=== PATIENT | male | born 1985 | race American Indian/Alaskan Native ===

== ENCOUNTER 2018-02-16 11:08 | Inpatient (IN) | payer OTHER ==
[2018-02-16 12:20] LABS: Basophils % (Auto) 0.4 % (0.0-1.8); Eosinophils # (Auto) 0.1 K/mm3 (0.0-0.4); Eosinophils % (Auto) 1.3 % (0.0-4.3); Hematocrit 39.3 % (35.5-45.6); Hemoglobin 13.5 gm/dl (11.8-15.2); Lymphocytes # (Auto) 1.2 K/mm3 (1.2-5.4); Lymphocytes % (Auto) 31.1 % (13.4-35.0); Mean Corpuscular HGB Conc 34 % (32-34); Mean Corpuscular Hemoglobin 29 pg (28-32); Mean Corpuscular Volume 85 fl (84-94); Monocytes # (Auto) 0.4 K/mm3 (0.0-0.8); Platelet Count 177 K/mm3 (140-440); Red Blood Count 4.64 M/mm3 (3.65-5.03); Red Cell Distribution Width 15.3 % (13.2-15.2)
[2018-02-16 12:42] LABS: Alanine Aminotransferase 626 units/L (7-56); BUN/Creatinine Ratio 26; Blood Urea Nitrogen 13 mg/dL (9-20); Calcium 9.7 mg/dL (8.4-10.2); Hemolysis Index 4; Lipase 18 units/L (13-60)
[2018-02-16 14:25] LABS: Bilirubin,Urine MOD (Negative); Blood,Urine NEG (Negative); Color,Urine Amber (Yellow); Mucus,Urine 3+ /HPF
[2018-02-16 14:27] LABS: Ictotest,Urine Positive (Negative)
[2018-02-16 15:20] LABS: INR 0.9 (0.87-1.13)
[2018-02-16 15:21] LABS: Partial Thromboplastin Time 27.3 Sec. (24.2-36.6)
[2018-02-16 15:34] LABS: Hepatitis A Antibody IgM Non-Reactive (NonReactive); Hepatitis B Core IgM Non-Reactive (NonReactive); Hepatitis B Surface Antigen Non-Reactive (Negative); Hepatitis C Virus Antibody Non-Reactive (NonReactive)
--- NOTE | 2018-02-16 16:22 | Emergency Department Report ---
ED Abdominal Pain HPI - General Chief Complaint: Abdominal Pain Stated Complaint: URINE DARK,ROBERTS STOOL Time Seen by Provider: 02/16/18 14:40 Source: patient Mode of arrival: Ambulatory Limitations: No Limitations - History of Present Illness Initial Comments: is a 32-year-old Citizen Of [place] male who is presenting with several months of upper abdominal pain. Patient states that in September he began having epigastric discomfort. Patient states he went and saw Dr. Beltran he had "inflammation in his liver". Patient states he was told nothing else no additional studies were done except for blood work. Patient states he's continued to have some discomfort that he rates around 3 out of 10 in severity. Patient denied any nausea vomiting fevers chills. Patient states that last week his young daughter as to why his eyes were yellow. Patient states that his eyes have progressively become more yellowed and he now has pale colored stool and very dark-colored urine. Severity scale (0 -10): 3 Quality: aching Consistency: constant - Related Data Allergies Allergy/AdvReac Type Severity Reaction Status Date / Time No Known Allergies Allergy Unverified 02/16/18 11:45 ED Review of Systems ROS: Stated complaint: URINE DARK,ROBERST STOOL Other details as noted in HPI Comment: All other systems reviewed and negative ED Past Medical Hx - Past Medical History Previous Medical History?: Yes Hx Seizures: Yes - Surgical History Past Surgical History?: Yes Additional Surgical History: knee surgery - Social History Smoking Status: Never Smoker Substance Use Type: Alcohol, Marijuana ED Physical Exam - General Limitations: No Limitations General appearance: alert, in no apparent distress - Head Head exam: Present: atraumatic, normocephalic - Eye Eye exam: Present: scleral icterus - ENT ENT exam: Present: mucous membranes moist - Neck Neck exam: Present: normal inspection - Respiratory Respiratory exam: Present: normal lung sounds bilaterally. Absent: respiratory distress, wheezes, rales, rhonchi - Cardiovascular Cardiovascular Exam: Present: regular rate, normal rhythm. Absent: systolic murmur, diastolic murmur, rubs, gallop - GI/Abdominal GI/Abdominal exam: Present: soft, tenderness, normal bowel sounds. Absent: distended, guarding, rebound - Rectal Rectal exam: Present: deferred - Extremities Exam Extremities exam: Present: normal inspection - Back Exam Back exam: Present: normal inspection - Neurological Exam Neurological exam: Present: alert, oriented X3 - Psychiatric Psychiatric exam: Present: normal affect, normal mood - Skin Skin exam: Present: warm, dry, intact, normal color. Absent: rash ED Course Vital Signs 02/16/18 02/16/18 11:30 15:55 Temperature 98.5 F 98.7 F Pulse Rate 56 L 66 Respiratory 16 15 Rate Blood Pressure 108/68 110/81 O2 Sat by Pulse 100 100 Oximetry ED Medical Decision Making - Lab Data Result diagrams: 02/16/18 11:50 02/16/18 11:50 Lab Results 02/16/18 02/16/18 02/16/18 Range/Units 11:50 11:50 13:30 WBC 4.0 L (4.5-11.0) K/mm3 RBC 4.64 (3.65-5.03) M/mm3 Hgb 13.5 (11.8-15.2) gm/dl Hct 39.3 (35.5-45.6) % MCV 85 (84-94) fl MCH 29 (28-32) pg MCHC 34 (32-34) % RDW 15.3 H (13.2-15.2) % Plt Count 177 (140-440) K/mm3 Lymph % (Auto) 31.1 (13.4-35.0) % [place] % (Auto) 11.0 H (0.0-7.3) % Eos % (Auto) 1.3 (0.0-4.3) % Baso % (Auto) 0.4 (0.0-1.8) % Lymph # 1.2 (1.2-5.4) K/mm3 [place] # 0.4 (0.0-0.8) K/mm3 Eos # 0.1 (0.0-0.4) K/mm3 Baso # 0.0 (0.0-0.1) K/mm3 Seg Neutrophils % 56.2 (40.0-70.0) % Seg Neutrophils # 2.2 (1.8-7.7) K/mm3 PT (12.2-14.9) Sec. INR (0.87-1.13) APTT (24.2-36.6) Sec. Sodium 133 L (137-145) mmol/L Potassium 3.9 (3.6-5.0) mmol/L Chloride 92.1 L (98-107) mmol/L Carbon Dioxide 26 (22-30) mmol/L Anion Gap 19 mmol/L BUN 13 (9-20) mg/dL Creatinine 0.5 L (0.8-1.5) mg/dL Estimated GFR > 60 ml/min BUN/Creatinine Ratio 26 % Glucose 363 H (75-100) mg/dL Calcium 9.7 (8.4-10.2) mg/dL Total Bilirubin 11.90 H (0.1-1.2) mg/dL AST 392 H (5-40) units/L ALT 626 H (7-56) units/L Alkaline Phosphatase 351 H (35-129) units/L Total Protein 7.6 (6.3-8.2) g/dL Albumin 4.0 (3.9-5) g/dL Albumin/Globulin Ratio 1.1 % Lipase 18 (13-60) units/L Urine Color [place] (Yellow) Urine Turbidity Clear (Clear) Urine pH 6.0 (5.0-7.0) Ur Specific [place] 1.038 H (1.003-1.030) Urine Protein 30 mg/dl (Negative) mg/dL Urine Glucose (UA) >=500 (Negative) mg/dL Urine Ketones 20 (Negative) mg/dL Urine Blood Neg (Negative) Urine Nitrite Neg (Negative) Urine Bilirubin Mod (Negative) Urine Ictotest Positive (Negative) Urine Urobilinogen 4.0 (<2.0) mg/dL Ur Leukocyte Esterase Neg (Negative) Urine WBC (Auto) 3.0 (0.0-6.0) /HPF Urine RBC (Auto) 4.0 (0.0-6.0) /HPF Urine Mucus 3+ /HPF Hepatitis A IgM Ab (NonReactive) Hep Bs Antigen (Negative) Hep B Core IgM Ab (NonReactive) Hepatitis C Antibody (NonReactive) 02/16/18 02/16/18 Range/Units 14:58 14:58 WBC (4.5-11.0) K/mm3 RBC (3.65-5.03) M/mm3 Hgb (11.8-15.2) gm/dl Hct (35.5-45.6) % MCV (84-94) fl MCH (28-32) pg MCHC (32-34) % RDW (13.2-15.2) % Plt Count (140-440) K/mm3 Lymph % (Auto) (13.4-35.0) % [place] % (Auto) (0.0-7.3) % Eos % (Auto) (0.0-4.3) % Baso % (Auto) (0.0-1.8) % Lymph # (1.2-5.4) K/mm3 [place] # (0.0-0.8) K/mm3 Eos # (0.0-0.4) K/mm3 Baso # (0.0-0.1) K/mm3 Seg Neutrophils % (40.0-70.0) % Seg Neutrophils # (1.8-7.7) K/mm3 PT 12.6 (12.2-14.9) Sec. INR 0.90 (0.87-1.13) APTT 27.3 (24.2-36.6) Sec. Sodium (137-145) mmol/L Potassium (3.6-5.0) mmol/L Chloride (98-107) mmol/L Carbon Dioxide (22-30) mmol/L Anion Gap mmol/L BUN (9-20) mg/dL Creatinine (0.8-1.5) mg/dL Estimated GFR ml/min BUN/Creatinine Ratio % Glucose (75-100) mg/dL Calcium (8.4-10.2) mg/dL Total Bilirubin (0.1-1.2) mg/dL AST (5-40) units/L ALT (7-56) units/L Alkaline Phosphatase (35-129) units/L Total Protein (6.3-8.2) g/dL Albumin (3.9-5) g/dL Albumin/Globulin Ratio % Lipase (13-60) units/L Urine Color (Yellow) Urine Turbidity (Clear) Urine pH (5.0-7.0) Ur Specific [place] (1.003-1.030) Urine Protein (Negative) mg/dL Urine Glucose (UA) (Negative) mg/dL Urine Ketones (Negative) mg/dL Urine Blood (Negative) Urine Nitrite (Negative) Urine Bilirubin (Negative) Urine Ictotest (Negative) Urine Urobilinogen (<2.0) mg/dL Ur Leukocyte Esterase (Negative) Urine WBC (Auto) (0.0-6.0) /HPF Urine RBC (Auto) (0.0-6.0) /HPF Urine Mucus /HPF Hepatitis A IgM Ab Non-reactive (NonReactive) Hep Bs Antigen Non-reactive (Negative) Hep B Core IgM Ab Non-reactive (NonReactive) Hepatitis C Antibody Non-reactive (NonReactive) - Medical Decision Making Review of the patient's S patient most likely has an obstructive jaundice. CTs been ordered and patient will be admitted to the hospital for further evaluation by Dr. Lombardi with the hospitalist group. Critical care attestation.: If time is entered above; I have spent that time in minutes in the direct care of this critically ill patient, excluding procedure time. ED Disposition Clinical Impression: Obstructive jaundice, Hyperbilirubinemia Disposition: OP ADMIT IP TO THIS HOSP Is pt being admited?: Yes Does the pt Need Aspirin: No Condition: Serious Referrals: PRIMARY CARE, [Primary Care Provider] - 3-5 Days
[2018-02-16] MEDS ORDERED: PROVENTIL IH PRN (18:16)
[2018-02-16] MEDS ORDERED: ZOFRAN IV PRN (18:16)
[2018-02-16] MEDS ORDERED: SODIUM CHLORIDE FLUSH SYRINGE 10 ML IV PRN (18:16)
--- NOTE | 2018-02-16 18:19 | History and Physical Report ---
History of Present Illness Chief complaint: My stomach hurts History of present illness: 32 YO Male with Seizure disorder presents to ED for evaluation. Pt states that he has experienced upper abdominal pain for the last 3 months, with persistent symptoms over the same time frame. Pt states that pain is 3-5/10, intermittent, localized to the upper right abdomen. Pt acknowledges 35lbs weight loss over the past 3 months. Pt also states that last week his daughter " why your eyes are so yellow". Patient states that his eyes have progressively become more yellowed over the past 2-3 weeks, and he now has pale colored stool and very dark-colored urine. Pt denies fever, chills, CP, Palpitations, night sweats, skin rash or recent ill contacts, ingestion of food or water from new or different sources. Pt seen and evaluated in ED and found to have obstructive jaundice. Pt admitted to telemetry. GI service consulted in ED. Past History Past Medical History: seizures Past Surgical History: Other (knee surgery) Social history: single, lives with family. denies: smoking, alcohol abuse, prescription drug abuse Family history: no significant family history (reviewed) Medications and Allergies Allergies Allergy/AdvReac Type Severity Reaction Status Date / Time No Known Allergies Allergy Unverified 02/16/18 11:45 Home Medications Medication Instructions Recorded Confirmed Last Taken Type No Known Home Medications [No 02/16/18 02/16/18 Unknown History Reported Home Medications] Active Meds: Active Medications Albuterol (Proventil) 2.5 mg IH Q4HRT PRN PRN Reason: Shortness Of Breath Ondansetron HCl (Zofran) 4 mg IV Q8H PRN PRN Reason: Nausea And Vomiting Sodium Chloride (Sodium Chloride Flush Syringe 10 Ml) 10 ml IV BID XIOMARA Sodium Chloride (Sodium Chloride Flush Syringe 10 Ml) 10 ml IV PRN PRN PRN Reason: LINE FLUSH Review of Systems Constitutional: weight loss, no weight gain, no fever, no chills Ears, nose, mouth and throat: no ear pain, no ear discharge, no tinnitis, no decreased hearing, no nose pain, no nasal congestion, no nasal discharge, no sinus pressure Cardiovascular: no chest pain, no orthopnea, no palpitations, no rapid/ irregular heart beat, no edema, no syncope, no lightheadedness, no shortness of breath Respiratory: no cough, no cough with sputum, no excessive sputum, no hemoptysis Gastrointestinal: abdominal pain, no nausea, no vomiting, no change in bowel habits, no hematemesis, no coffee ground emesis, no melena, no hematochezia Genitourinary Male: no dysuria, no hematuria, no flank pain, no discharge Rectal: no pain, no incontinence, no bleeding Musculoskeletal: no neck stiffness, no neck pain, no shooting arm pain, no arm numbness/tingling, no low back pain, no morning stiffness, no muscle weakness, no muscle cramps, no myalgias Integumentary: jaundice, no rash, no pruritis, no redness, no sores, no wounds, no boils, no blisters, no growths, no bullae, no lesions Neurological: no paralysis, no weakness, no parathesias, no numbness, no tingling, no seizures, no syncope, no tremors Psychiatric: no anxiety, no memory loss, no change in sleep habits, no sleep disturbances, no insomnia, no hypersomnia, no change in appetite, no change in libido, no suicidal ideation Endocrine: no cold intolerance, no heat intolerance, no polyphagia, no excessive thirst, no polyuria, no flushing Hematologic/Lymphatic: no easy bruising, no easy bleeding, no lymphadenopathy Allergic/Immunologic: no urticaria, no allergic rhinitis, no wheezing, no persistent infections, no anaphylaxis, no angioedema Exam - Constitutional Vitals: Temp Pulse Resp BP Pulse Ox 98.7 F 66 15 110/81 100 02/16/18 15:55 02/16/18 15:55 02/16/18 15:55 02/16/18 15:55 02/16/18 15:55 General appearance: Present: mild distress - EENT Eyes: Present: PERRL, scleral icterus ENT: hearing intact, clear oral mucosa - Neck Neck: Present: supple, normal ROM - Respiratory Respiratory effort: normal Respiratory: bilateral: CTA - Cardiovascular Heart Sounds: Present: S1 & S2. Absent: rub, click - Extremities Extremities: pulses symmetrical, No edema Peripheral Pulses: within normal limits - Abdominal General gastrointestinal: Present: soft, tender, non-distended, normal bowel sounds Localized gastrointestinal: tender: RUQ Male genitourinary: Present: normal - Integumentary Integumentary: Present: clear, warm, dry, jaundice - Musculoskeletal Musculoskeletal: gait normal, strength equal bilaterally - Psychiatric Psychiatric: appropriate mood/affect, intact judgment & insight - Neurologic Neurologic: CNII-XII intact, moves all extremities Results - Labs CBC & Chem 7: 02/16/18 11:50 02/16/18 11:50 Labs: Abnormal lab results 02/16/18 02/16/18 02/16/18 Range/Units 11:50 11:50 13:30 WBC 4.0 L (4.5-11.0) K/mm3 RDW 15.3 H (13.2-15.2) % [place] % (Auto) 11.0 H (0.0-7.3) % Sodium 133 L (137-145) mmol/L Chloride 92.1 L (98-107) mmol/L Creatinine 0.5 L (0.8-1.5) mg/dL Glucose 363 H (75-100) mg/dL Total Bilirubin 11.90 H (0.1-1.2) mg/dL AST 392 H (5-40) units/L ALT 626 H (7-56) units/L Alkaline Phosphatase 351 H (35-129) units/L Ur Specific [place] 1.038 H (1.003-1.030) Assessment and Plan - Patient Problems (1) HCC (hepatocellular carcinoma) Current Visit: Yes Status: Suspected Plan to address problem: Suspected, HCC. CEA, CA 19-9, AFP (2) Biliary obstruction Current Visit: Yes Status: Acute Plan to address problem: CT Abdomen pelvis, LFT, GI consulted in ED, repeat LFT to monitor trend, (3) Abdominal pain Current Visit: Yes Status: Acute Qualifiers: Abdominal location: right upper quadrant Qualified Code(s): R10.11 - Right upper quadrant pain Plan to address problem: Pain control, CT Abdomen pelvis, GI consulted in ED. (4) Obstructive jaundice Current Visit: Yes Status: Acute Plan to address problem: CT Abdomen pelvis, will consider MRCP in AM. Will discuss with GI pending results of CT Abdomen. (5) DVT prophylaxis Current Visit: Yes Status: Acute Plan to address problem: SCD to BLE while in Bed
--- NOTE | 2018-02-16 18:31 | Cat Scan Report ---
FINAL REPORT EXAM: CT ABDOMEN PELVIS W CON HISTORY: hyperbilirubinemia with epigastric pain TECHNIQUE: CT abdomen and pelvis with intravenous contrast PRIORS: None. FINDINGS: No acute abnormality identified in the lung bases. No focal abnormality identified within the liver parenchyma. No pericholecystic inflammatory changes are observed. There is mild intrahepatic biliary prominence common bile duct is dilated measuring 0.84 centimeters The spleen demonstrates normal size and attenuation. No pancreatic abnormalities seen. The kidneys demonstrate symmetric contrast enhancement. No evidence of hydronephrosis. The adrenal glands are unremarkable Abdominal aorta is normal in caliber. There are some prominent lymph nodes adjacent to the head of the pancreas and duodenum with some fullness of the pancreatic head measuring up to 1 centimeter in transverse diameter. There is a portacaval node measuring 1.1 centimeters no signs of free fluid or free air No evidence of small bowel dilatation. Colon is nondistended. No pericolonic inflammatory change. Urinary bladder is unremarkable. IMPRESSION: Intra and extrahepatic biliary dilatation Prominent peripancreatic and perigastric nodes present. Should be further evaluated suggest MRCP for further evaluation to include pancreatic protocol and IV contrast
[2018-02-17 08:59] LABS: Alanine Aminotransferase 615 units/L (7-56); Albumin 3.7 g/dL (3.9-5); BUN/Creatinine Ratio 22; Blood Urea Nitrogen 11 mg/dL (9-20); Calcium 9.4 mg/dL (8.4-10.2); Hemolysis Index 0
--- NOTE | 2018-02-17 10:35 | Gastroenterology Consultation ---
<DAYAN RIVAS - Last Filed: 02/17/18 10:53> History of Present Illness - Reason for Consult Consult date: 02/17/18 biliary colic Requesting physician: SHAHNAZ WILL - History of Present Illness Patient is a 32 y/o male with PMH of seizures who presented to ED with c/o abd pain x 3 months, wt loss, yellowing of his eyes, and dark colored urine. Abd CT showed intra and extra hepatic biliary dilation and prominent peripancreatic and perigastric nodes. Acute hepatitis panel negative. This morning pt was resting in bed w/o acute distress. Epigastric pain now improved with no N/V since yesterday. Denies fever, CP, SOB, itching, diarrhea, constipation, or signs of bleeding. No prior hx or Fhx of liver disease. No IV drug use, ill contacts, or ingestion of food or water from new or different sources. Admits to prior daily alcohol use with approximately 1 beer per day but states he stopped drinking alcohol a couple of months ago when his abd pain with N/V began. Past History Past Medical History: seizures Past Surgical History: Other (knee surgery) Social history: single, lives with family, other (alcohol, marijuana). denies: smoking Family history: no significant family history (reviewed) Medications and Allergies Allergies Allergy/AdvReac Type Severity Reaction Status Date / Time No Known Allergies Allergy Unverified 02/16/18 11:45 Home Medications Medication Instructions Recorded Confirmed Last Taken Type No Known Home Medications [No 02/16/18 02/16/18 Unknown History Reported Home Medications] Active Meds: Active Medications Albuterol (Proventil) 2.5 mg IH Q4HRT PRN PRN Reason: Shortness Of Breath Ondansetron HCl (Zofran) 4 mg IV Q8H PRN PRN Reason: Nausea And Vomiting Sodium Chloride (Sodium Chloride Flush Syringe 10 Ml) 10 ml IV BID XIOMARA Sodium Chloride (Sodium Chloride Flush Syringe 10 Ml) 10 ml IV PRN PRN PRN Reason: LINE FLUSH Review of Systems - Review of Systems All systems: negative Constitutional: weight loss Gastrointestinal: abdominal pain, nausea, vomiting, jaundice Male Genitourinary: other (dark urine) Exam - Constitutional Vital Signs: Temp Pulse Resp BP Pulse Ox 98.4 F 52 L 18 102/55 100 02/17/18 07:47 02/17/18 07:47 02/17/18 07:47 02/17/18 07:47 02/17/18 09:49 General appearance: no acute distress - EENT Eyes: PERRL, EOM intact, scleral icterus ENT: hearing intact - Respiratory Respiratory: bilateral: CTA - Cardiovascular Rhythm: other (bradycardia) Heart Sounds: Present: S1 & S2 - Gastrointestinal General gastrointestinal: Present: soft, non-tender, non-distended, normal bowel sounds - Integumentary Integumentary: Present: warm, dry - Neurologic Neurological: alert and oriented x3 - Labs CBC & Chem 7: 02/16/18 11:50 02/17/18 07:56 Lab Results: Laboratory Results - last 24 hr 02/16/18 02/16/18 02/16/18 11:50 11:50 13:30 WBC 4.0 L RBC 4.64 Hgb 13.5 Hct 39.3 MCV 85 MCH 29 MCHC 34 RDW 15.3 H Plt Count 177 Lymph % (Auto) 31.1 [place] % (Auto) 11.0 H Eos % (Auto) 1.3 Baso % (Auto) 0.4 Lymph # 1.2 [place] # 0.4 Eos # 0.1 Baso # 0.0 Seg Neutrophils % 56.2 Seg Neutrophils # 2.2 PT INR APTT Sodium 133 L Potassium 3.9 Chloride 92.1 L Carbon Dioxide 26 Anion Gap 19 BUN 13 Creatinine 0.5 L Estimated GFR > 60 BUN/Creatinine Ratio 26 Glucose 363 H Calcium 9.7 Total Bilirubin 11.90 H AST 392 H ALT 626 H Alkaline Phosphatase 351 H Total Protein 7.6 Albumin 4.0 Albumin/Globulin Ratio 1.1 Lipase 18 Urine Color [place] Urine Turbidity Clear Urine pH 6.0 Ur Specific [place] 1.038 H Urine Protein 30 mg/dl Urine Glucose (UA) >=500 Urine Ketones 20 Urine Blood Neg Urine Nitrite Neg Urine Bilirubin Mod Urine Ictotest Positive Urine Urobilinogen 4.0 Ur Leukocyte Esterase Neg Urine WBC (Auto) 3.0 Urine RBC (Auto) 4.0 Urine Mucus 3+ Hepatitis A IgM Ab Hep Bs Antigen Hep B Core IgM Ab Hepatitis C Antibody 02/16/18 02/16/18 02/17/18 14:58 14:58 07:56 WBC RBC Hgb Hct MCV MCH MCHC RDW Plt Count Lymph % (Auto) [place] % (Auto) Eos % (Auto) Baso % (Auto) Lymph # Bee # Eos # Baso # Seg Neutrophils % Seg Neutrophils # PT 12.6 INR 0.90 APTT 27.3 Sodium 132 L Potassium 3.7 Chloride 94.4 L Carbon Dioxide 26 Anion Gap 15 BUN 11 Creatinine 0.5 L Estimated GFR > 60 BUN/Creatinine Ratio 22 Glucose 294 H Calcium 9.4 Total Bilirubin 12.30 H AST 363 H ALT 615 H Alkaline Phosphatase 333 H Total Protein 7.2 Albumin 3.7 L Albumin/Globulin Ratio 1.1 Lipase Urine Color Urine Turbidity Urine pH Ur Specific [place] Urine Protein Urine Glucose (UA) Urine Ketones Urine Blood Urine Nitrite Urine Bilirubin Urine Ictotest Urine Urobilinogen Ur Leukocyte Esterase Urine WBC (Auto) Urine RBC (Auto) Urine Mucus Hepatitis A IgM Ab Non-reactive Hep Bs Antigen Non-reactive Hep B Core IgM Ab Non-reactive Hepatitis C Antibody Non-reactive Assessment and Plan 1.biliary colic -afebrile -WBC and lipase-WNL -T.yves 12.3, AST 363, ALT 615, alk phos 333 -INR 0.90 -acute hepatitis panel negative -CA 19-9 and AFP-pending -abd CT showed intra and extra hepatic biliary dilation and prominent peripancreatic and perigastric nodes -will order MRCP for further evaluation -further recommendation pending MRCP results -continue to trend labs and supportive care -will follow <LORE NAVARRO - Last Filed: 02/17/18 20:47> Medications and Allergies Active Meds: Active Medications Albuterol (Proventil) 2.5 mg IH Q4HRT PRN PRN Reason: Shortness Of Breath Ondansetron HCl (Zofran) 4 mg IV Q8H PRN PRN Reason: Nausea And Vomiting Sodium Chloride (Sodium Chloride Flush Syringe 10 Ml) 10 ml IV BID XIOMARA Sodium Chloride (Sodium Chloride Flush Syringe 10 Ml) 10 ml IV PRN PRN PRN Reason: LINE FLUSH Exam - Constitutional Vital Signs: Temp Pulse Resp BP Pulse Ox 98.9 F 51 L 18 114/74 99 02/17/18 16:07 02/17/18 16:07 02/17/18 16:07 02/17/18 16:07 02/17/18 16:07 - Labs CBC & Chem 7: 04/04/18 11:50 02/17/18 07:56 Lab Results: Laboratory Results - last 24 hr 02/17/18 07:56 Sodium 132 L Potassium 3.7 Chloride 94.4 L Carbon Dioxide 26 Anion Gap 15 BUN 11 Creatinine 0.5 L Estimated GFR > 60 BUN/Creatinine Ratio 22 Glucose 294 H Calcium 9.4 Total Bilirubin 12.30 H AST 363 H ALT 615 H Alkaline Phosphatase 333 H Total Protein 7.2 Albumin 3.7 L Albumin/Globulin Ratio 1.1 Assessment and Plan Pt seen and examined. Agree with note by Dayan Rivas. Patient presenting with jaundice, weight loss, and vague abdominal pain. Denies recent alcohol use. CT suggestive of biliary obstructive process. Will obtain MRCP. Tumor markers pending, will check autoimmune markers. No signs of sepsis/cholangitis at present time.
--- NOTE | 2018-02-17 13:58 | Progress Note ---
Assessment and Plan Assessment and Plan - Patient Problems (1) pancreatic tumor with belated dictation Current Visit: Yes Status: Suspected Plan to address problem: Suspected, pancreatic cancer. CEA, CA 19-9, AFP (2) Biliary obstruction Current Visit: Yes Status: Acute Plan to address problem: CT Abdomen pelvis, LFT, GI consulted in ED, repeat LFT to monitor trend, (3) Abdominal pain Current Visit: Yes Status: Acute Qualifiers: Abdominal location: right upper quadrant Qualified Code(s): R10.11 - Right upper quadrant pain Plan to address problem: Pain control, CT Abdomen pelvis, GI consulted in ED. (4) Obstructive jaundice Current Visit: Yes Status: Acute Plan to address problem: CT Abdomen pelvis, will consider MRCP in AM. Will discuss with GI pending results of CT Abdomen. (5) DVT prophylaxis Current Visit: Yes Status: Acute Plan to address problem: SCD to BLE while in Bed Subjective Date of service: 02/17/18 Principal diagnosis: Pancreatic tumor with high LFT's Interval history: Some abdominal discomfort and nausea present .Tolerating food well.No fever or chills.No delirium. Objective - Exam Narrative Exam: Lying in bed comfortably - Constitutional Vitals: Vital Signs - 12hr 02/17/18 02/17/18 02/17/18 02:39 07:47 09:49 Temperature 98.0 F 98.4 F Pulse Rate 52 L 52 L Respiratory 16 18 Rate Blood Pressure 118/78 102/55 O2 Sat by Pulse 98 97 100 Oximetry General appearance: Present: no acute distress, well-nourished - EENT Eyes: PERRL, EOM intact ENT: hearing intact, clear oral mucosa Ears: bilateral: normal - Neck Neck: supple, normal ROM - Respiratory Respiratory effort: normal Respiratory: bilateral: CTA - Breasts Breasts: normal - Cardiovascular Rhythm: regular Heart Sounds: Present: S1 & S2. Absent: gallop, rub Extremities: pulses intact, No edema, normal color, Full ROM - Gastrointestinal General gastrointestinal: Present: soft, non-tender, non-distended, normal bowel sounds, other (no mass felt in the epigastric region. No hepatomegaly) - Genitourinary Male genitourinary: normal - Integumentary Integumentary: clear, warm, dry - Musculoskeletal Musculoskeletal: 1, strength equal bilaterally - Neurologic Neurologic: moves all extremities - Psychiatric Psychiatric: memory intact, appropriate mood/affect, intact judgment & insight - Labs CBC & Chem 7: 02/18/18 05:29 02/18/18 05:29 Labs: Abnormal lab results 02/16/18 02/17/18 Range/Units 13:30 07:56 Sodium 132 L (137-145) mmol/L Chloride 94.4 L (98-107) mmol/L Creatinine 0.5 L (0.8-1.5) mg/dL Glucose 294 H (75-100) mg/dL Total Bilirubin 12.30 H (0.1-1.2) mg/dL AST 363 H (5-40) units/L ALT 615 H (7-56) units/L Alkaline Phosphatase 333 H (35-129) units/L Albumin 3.7 L (3.9-5) g/dL Ur Specific [place] 1.038 H (1.003-1.030) CT abdomen: Shows intra-and extrahepatic biliary evaluation. Prominent peripancreatic and perigastric nodes present. MRCP suggested. MRCP: Pancreatic head is enlarged. Lymph node present adjacent to the pancreas. : Impression: Intra-and extrahepatic biliary dilation. Findings are most concerning for infiltrate or tumor involving the head of the pancreas and distal common bile duct - Imaging and cardiology Other: pending, report reviewed
--- NOTE | 2018-02-17 18:48 | Magnetic Resonance Report ---
FINAL REPORT EXAM: MR ABDOMEN WO/W CON HISTORY: obstructive jaundice, elevated LFTs TECHNIQUE: MRI abdomen and without contrast PRIORS: Correlated with the CT February 16, 2018 FINDINGS: There is intra and extrahepatic biliary dilatation. Common hepatic duct measuring 1.1 centimeters and the common bile duct 1.8 centimeters. At the distal duct at the level of the sphincter of Oddi there is abrupt caliber change with a thin distal tapered segment. The pancreatic duct is not identifiable at the pancreatic head however the distal duct at the tail of the pancreas is visualized is not dilated measuring approximately 2 millimeters The pancreatic head is enlarged. On postcontrast imaging earlier phase images there is appearance suggestive of subtle hypo enhancement of the pancreatic head which has a bulky configuration. There contiguity with the descending duodenum and invasion of the duodenal wall cannot be excluded. Again noted as on the prior CT are lymph nodes present adjacent to the head of the pancreas these are subcentimeter measuring up to approximately 0.6 centimeters. Gallbladder is mildly distended. No evidence for cholelithiasis. No focal parenchymal abnormality identified within the liver on pre or postcontrast exam The spleen is normal in size Kidneys demonstrate symmetric contrast enhancement IMPRESSION: Intra and extrahepatic biliary dilatation. There is an abrupt caliber change at the distal duct Bulky configuration of the head of the pancreas with subtle hypoenhancement. Small however prominent peripancreatic lymph nodes Contiguity with the descending duodenum noted there is concern for involvement of the duodenal wall Findings are most concerning for infiltrative tumor involving the head of the pancreas and distal common bile duct
[2018-02-18] MEDS: SODIUM CHLORIDE FLUSH SYRINGE 10 ML IV SCH ×2 (03:28→12:35)
[2018-02-18 05:47] LABS: Basophils % (Auto) 0.7 % (0.0-1.8); Eosinophils # (Auto) 0.1 K/mm3 (0.0-0.4); Eosinophils % (Auto) 2.3 % (0.0-4.3); Hematocrit 36.1 % (35.5-45.6); Hemoglobin 12.5 gm/dl (11.8-15.2); Lymphocytes # (Auto) 1.5 K/mm3 (1.2-5.4); Mean Corpuscular HGB Conc 35 % (32-34); Mean Corpuscular Hemoglobin 29 pg (28-32); Mean Corpuscular Volume 84 fl (84-94); Monocytes # (Auto) 0.4 K/mm3 (0.0-0.8); Monocytes % (Auto) 10.6 % (0.0-7.3); Platelet Count 170 K/mm3 (140-440); Red Cell Distribution Width 15.2 % (13.2-15.2)
[2018-02-18 06:09] LABS: Alanine Aminotransferase 591 units/L (7-56); Albumin 3.7 g/dL (3.9-5); BUN/Creatinine Ratio 26; Blood Urea Nitrogen 13 mg/dL (9-20); Calcium 9.1 mg/dL (8.4-10.2); Hemolysis Index 0
[2018-02-18 06:13] LABS: INR 0.91 (0.87-1.13)
--- NOTE | 2018-02-18 14:38 | Consultation ---
History of Present Illness Consult date: 02/18/18 Chief complaint: yellow eyes, abd pain - History of present illness History of present illness: 32-year-old male with a history of seizures presented to the hospital with complaints of yellowing of his eyes, dark urine, light stools. The patient has been suffering with gastrointestinal issues since September 2017. He states this started with epigastric abdominal pain nausea and vomiting which led him to see a real estate utilization officer at [place] in September. He underwent an EGD which showed gastritis. The patient states that he continues to have poor appetite, and now has noted his eyes have become yellow, his urine is dark and his stool is light [place]cino. This is been ongoing for the last week or so. He admits to a greater than 30 pound unintentional weight loss in the last 3-4 months. He is tolerating a regular diet and denies abdominal pain at this time. No fevers, chills, chest pain, shortness of breath, nausea, vomiting. The patient denies a family history of gastrointestinal intestinal cancer. Past History Past Medical History: seizures Past Surgical History: Other (knee surgery) Social history: single, lives with family, other (alcohol, marijuana). denies: smoking Family history: no significant family history (reviewed) Medications and Allergies Allergies Allergy/AdvReac Type Severity Reaction Status Date / Time No Known Allergies Allergy Unverified 02/16/18 11:45 Home Medications Medication Instructions Recorded Confirmed Last Taken Type No Known Home Medications [No 02/16/18 02/16/18 Unknown History Reported Home Medications] Active Meds: Active Medications Albuterol (Proventil) 2.5 mg IH Q4HRT PRN PRN Reason: Shortness Of Breath Ondansetron HCl (Zofran) 4 mg IV Q8H PRN PRN Reason: Nausea And Vomiting Sodium Chloride (Sodium Chloride Flush Syringe 10 Ml) 10 ml IV BID XIOMARA Last Admin: 02/18/18 12:35 Dose: 10 ml Sodium Chloride (Sodium Chloride Flush Syringe 10 Ml) 10 ml IV PRN PRN PRN Reason: LINE FLUSH Review of Systems All systems: negative (10 point review of systems performed and negative except for above in HPI) Exam Vital Signs Temp Pulse Resp BP Pulse Ox 98.5 F 56 L 16 108/68 100 02/16/18 11:30 02/16/18 11:30 02/16/18 11:30 02/16/18 11:30 02/16/18 11:30 Narrative exam: General: Awake, alert, oriented 3. No apparent distress ENT: Positive scleral icterus CV: S1, S2 present Respiratory: Even and unlabored Abdomen: Soft, nontender, nondistended Extremities: No clubbing, cyanosis, edema Results - Labs 02/18/18 05:29 02/18/18 05:29 Abnormal lab results 02/18/18 02/18/18 Range/Units 05:29 05:29 WBC 4.1 L (4.5-11.0) K/mm3 MCHC 35 H (32-34) % Lymph % (Auto) 36.0 H (13.4-35.0) % [place] % (Auto) 10.6 H (0.0-7.3) % Potassium 3.5 L (3.6-5.0) mmol/L Chloride 96.1 L (98-107) mmol/L Creatinine 0.5 L (0.8-1.5) mg/dL Glucose 267 H (75-100) mg/dL Total Bilirubin 11.60 H (0.1-1.2) mg/dL AST 303 H (5-40) units/L ALT 591 H (7-56) units/L Alkaline Phosphatase 342 H (35-129) units/L Albumin 3.7 L (3.9-5) g/dL Diabetes panel 02/18/18 Range/Units 05:29 Sodium 137 (137-145) mmol/L Potassium 3.5 L (3.6-5.0) mmol/L Chloride 96.1 L (98-107) mmol/L Carbon Dioxide 27 (22-30) mmol/L BUN 13 (9-20) mg/dL Creatinine 0.5 L (0.8-1.5) mg/dL Glucose 267 H (75-100) mg/dL Calcium 9.1 (8.4-10.2) mg/dL AST 303 H (5-40) units/L ALT 591 H (7-56) units/L Alkaline Phosphatase 342 H (35-129) units/L Total Protein 7.0 (6.3-8.2) g/dL Albumin 3.7 L (3.9-5) g/dL Calcium panel 02/18/18 Range/Units 05:29 Calcium 9.1 (8.4-10.2) mg/dL Albumin 3.7 L (3.9-5) g/dL Pituitary panel 02/18/18 Range/Units 05:29 Sodium 137 (137-145) mmol/L Potassium 3.5 L (3.6-5.0) mmol/L Chloride 96.1 L (98-107) mmol/L Carbon Dioxide 27 (22-30) mmol/L BUN 13 (9-20) mg/dL Creatinine 0.5 L (0.8-1.5) mg/dL Glucose 267 H (75-100) mg/dL Calcium 9.1 (8.4-10.2) mg/dL Adrenal panel 02/18/18 Range/Units 05:29 Sodium 137 (137-145) mmol/L Potassium 3.5 L (3.6-5.0) mmol/L Chloride 96.1 L (98-107) mmol/L Carbon Dioxide 27 (22-30) mmol/L BUN 13 (9-20) mg/dL Creatinine 0.5 L (0.8-1.5) mg/dL Glucose 267 H (75-100) mg/dL Calcium 9.1 (8.4-10.2) mg/dL Total Bilirubin 11.60 H (0.1-1.2) mg/dL AST 303 H (5-40) units/L ALT 591 H (7-56) units/L Alkaline Phosphatase 342 H (35-129) units/L Total Protein 7.0 (6.3-8.2) g/dL Albumin 3.7 L (3.9-5) g/dL - Imaging CT scan - abdomen: report reviewed, image reviewed CT scan - pelvis: report reviewed, image reviewed Additional studies: MRI abdomen Assessment and Plan 32 yo M with pancreatic head mass with obstruction, possible duodenal involvement Plan: Ct scan and MRI reviewed - pancreatic head mass with obstruction of biliary tree. Patient will need further workup for pancreatic mass. Will d/w GI regarding possible ERCP with brushings to obtain cytology vs EUS. Will likely need follow up at or transfer to tertiary care center with hepatobiliary surgical service. Tumor markers are pending. Thank you for this consultation, please call with questions or concerns.
--- NOTE | 2018-02-18 15:03 | Progress Note ---
Assessment and Plan Assessment and Plan - Patient Problems (1) pancreatic cancer. Needs endoscopic ultrasound-guided biopsy Patient to follow with [facility] or [place] Current Visit: Yes Status: Suspected Plan to address problem: Suspected, HCC. CEA, CA 19-9, AFP (2) Biliary obstruction Current Visit: Yes Status: Acute Plan to address problem: CT Abdomen pelvis, LFT, GI consulted in ED, repeat LFT to monitor trend, (3) Abdominal pain Current Visit: Yes Status: Acute Qualifiers: Abdominal location: right upper quadrant Qualified Code(s): R10.11 - Right upper quadrant pain Plan to address problem: Pain control, CT Abdomen pelvis, GI consulted in ED. (4) Obstructive jaundice Current Visit: Yes Status: Acute Plan to address problem: CT Abdomen pelvis, will consider MRCP in AM. Will discuss with GI pending results of CT Abdomen. (5) DVT prophylaxis Current Visit: Yes Status: Acute Plan to address problem: SCD to BLE while in Bed Subjective Date of service: 02/18/18 Principal diagnosis: pancreatic tumor Interval history: Some abdominal discomfort and nausea present .Tolerating food well.No fever or chills.No delirium. Objective - Exam Narrative Exam: Lying in bed comfortably - Constitutional Vitals: Vital Signs - 12hr 02/18/18 02/18/18 07:51 08:00 Temperature 98.5 F Pulse Rate 55 L Respiratory 20 Rate Blood Pressure 94/62 O2 Sat by Pulse 99 98 Oximetry General appearance: Present: no acute distress, well-nourished - EENT Eyes: PERRL, EOM intact ENT: hearing intact, clear oral mucosa Ears: bilateral: normal - Neck Neck: supple, normal ROM - Respiratory Respiratory effort: normal Respiratory: bilateral: CTA - Breasts Breasts: normal - Cardiovascular Heart rate: 80 Rhythm: regular Heart Sounds: Present: S1 & S2. Absent: gallop, rub Extremities: pulses intact, No edema, normal color, Full ROM - Gastrointestinal General gastrointestinal: Present: soft, non-tender, non-distended, normal bowel sounds, other (abdomen soft and benign no masses) - Genitourinary Male genitourinary: normal - Integumentary Integumentary: clear, warm, dry - Musculoskeletal Musculoskeletal: 1, strength equal bilaterally - Neurologic Neurologic: moves all extremities - Psychiatric Psychiatric: memory intact, appropriate mood/affect, intact judgment & insight - Labs CBC & Chem 7: 02/18/18 05:29 02/18/18 05:29 Labs: Abnormal lab results 02/18/18 02/18/18 Range/Units 05:29 05:29 WBC 4.1 L (4.5-11.0) K/mm3 MCHC 35 H (32-34) % Lymph % (Auto) 36.0 H (13.4-35.0) % [place] % (Auto) 10.6 H (0.0-7.3) % Potassium 3.5 L (3.6-5.0) mmol/L Chloride 96.1 L (98-107) mmol/L Creatinine 0.5 L (0.8-1.5) mg/dL Glucose 267 H (75-100) mg/dL Total Bilirubin 11.60 H (0.1-1.2) mg/dL AST 303 H (5-40) units/L ALT 591 H (7-56) units/L Alkaline Phosphatase 342 H (35-129) units/L Albumin 3.7 L (3.9-5) g/dL
--- NOTE | 2018-02-18 18:50 | Gastroenterology Progress Note ---
Assessment and Plan 1. Obstructive jaundice 2. weight loss -imaging findings reviewed, concerning for neoplastic process/pancreatic malignancy. given young age, working up for possible autoimmune pancreatitis ( serologies pending), but should consider this malignancy for time being until proven otherwise. no signs of cholangitis. needs diagnostic study, imaging shows infiltration of duodenum so egd with biopsies can be considered. ercp can also be considered for stenting and diagnostic purposes, however he may be best served transferring to [place] for surgery evaluation given his young age and possible resectability. will f/u markers, and discuss with primary about possible candidacy for transferring pt Subjective Date of service: 02/18/18 Principal diagnosis: obstructive jaundice Interval history: pt seen and examined. discussed imaging results with pt. no known family h/o pancreatic or other malignancies. no fevers/chills Objective - Constitutional Vitals: Temp Pulse Resp BP Pulse Ox 98.9 F 56 L 20 116/70 98 02/18/18 15:59 02/18/18 15:59 02/18/18 15:59 02/18/18 15:59 02/18/18 15:59 General appearance: no acute distress - EENT Eyes: scleral icterus - Respiratory Respiratory effort: normal Respiratory: bilateral: CTA - Cardiovascular Rhythm: regular Heart Sounds: Present: S1 & S2 - Gastrointestinal General gastrointestinal: Present: soft, non-tender, non-distended - Neurologic Neurological: alert and oriented x3 - Labs CBC & Chem 7: 02/18/18 05:29 02/18/18 05:29 Labs: Laboratory Results - last 24 hr 02/18/18 02/18/18 02/18/18 05:29 05:29 05:29 WBC 4.1 L RBC 4.30 Hgb 12.5 Hct 36.1 MCV 84 MCH 29 MCHC 35 H RDW 15.2 Plt Count 170 Lymph % (Auto) 36.0 H [place] % (Auto) 10.6 H Eos % (Auto) 2.3 Baso % (Auto) 0.7 Lymph # 1.5 [place] # 0.4 Eos # 0.1 Baso # 0.0 Seg Neutrophils % 50.4 Seg Neutrophils # 2.1 PT 12.7 INR 0.91 Sodium 137 Potassium 3.5 L Chloride 96.1 L Carbon Dioxide 27 Anion Gap 17 BUN 13 Creatinine 0.5 L Estimated GFR > 60 BUN/Creatinine Ratio 26 Glucose 267 H Calcium 9.1 Total Bilirubin 11.60 H AST 303 H ALT 591 H Alkaline Phosphatase 342 H Total Protein 7.0 Albumin 3.7 L Albumin/Globulin Ratio 1.1 - Imaging CT scan: report reviewed MRI: report reviewed
[2018-02-19] MEDS: SODIUM CHLORIDE FLUSH SYRINGE 10 ML IV SCH ×2 (01:55→18:23)
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
--- NOTE | 2018-02-19 14:25 | Hem/Onc Progress Note ---
Subjective Date of service: 02/19/18 Interval history: Patient is stable clinically. - eating well no pain. ambulatory MRI suggestive of pancreatic neoplasm. - ERCP vs possible transfer - patient encouraged to ambulate to decrease DVT risk. Objective - Constitutional Vitals: Last Vital Signs Temp 98.2 F 02/19/18 08:09 Pulse 50 L 02/19/18 08:09 Resp 20 02/19/18 08:09 BP 94/57 02/19/18 08:09 Pulse Ox 97 02/19/18 08:09
--- NOTE | 2018-02-19 15:02 | Discharge Summary ---
Providers - Providers Date of Admission: 02/16/18 18:16 Date of discharge: 02/19/18 Attending physician: CHAYA LITTLE 02/16/18 18:19 Consult to Physician [CONS] Routine Comment: Consulting Provider: YASEMIN TOUSSAINT Physician Instructions: Reason For Exam: biliary colic 02/18/18 11:29 Consult to Physician [CONS] Routine Comment: Consulting Provider: LORE NAVARRO Physician Instructions: consult oncology-Dr. Perales Reason For Exam: pancreatic cancer 02/18/18 11:33 Consult to Physician [CONS] Routine Comment: Consulting Provider: LORE NAVARRO Physician Instructions: consult surgery- or Dr. Morataya Reason For Exam: pancreatic cancer Primary care physician: ADMINISTRATOR Hospitalization Condition: Serious Pertinent studies: CT abdomen: Shows intra-and extrahepatic biliary evaluation. Prominent peripancreatic and perigastric nodes present. MRCP suggested. MRCP: Pancreatic head is enlarged. Lymph node present adjacent to the pancreas. : Impression: Intra-and extrahepatic biliary dilation. Findings are most concerning for infiltrate or tumor involving the head of the pancreas and distal common bile duct Hospital course: Assessment and Plan - Patient Problems (1) pancreatic cancer versus phlegmon Needs endoscopic ultrasound guided biopsy Patient to follow with the [facility] or [place]. Patient went to [place] in the last couple of months Current Visit: Yes Status: Suspected Plan to address problem: Suspected, HCC. CEA, CA 19-9, AFP (2) Biliary obstruction Current Visit: Yes Status: Acute Plan to address problem: CT abdomen MRCP reviewed. Findings consistent with intra-and extra hepatic biliary dilation and pancreatic head tumor infiltrative in nature. Probably pancreatic cancer unless proven otherwise. Patient needs endoscopic ultrasound guided biopsy at a tertiary center. Heart extensive discussion with the patient and the patient's family. His girlfriend was at his bedside. Imaging studies and labs were given to her to follow-up (3) Abdominal pain Current Visit: Yes Status: Acute Qualifiers: Abdominal location: right upper quadrant Qualified Code(s): R10.11 - Right upper quadrant pain Plan to address problem: Secondary to pancreatic tumor (4) Obstructive jaundice Current Visit: Yes Status: Acute Plan to address problem: Secondary to biliary duct obstruction in the pancreatic head. (5) DVT prophylaxis Current Visit: Yes Status: Acute Plan to address problem: SCD to BLE while in Bed Disposition: DC-01 TO HOME OR SELFCARE Core Measure Documentation - Palliative Care Palliative Care/ Comfort Measures: Not Applicable - Core Measures Any of the following diagnoses?: none Exam - Constitutional Vitals: Temp Pulse Resp BP Pulse Ox 98.2 F 50 L 20 94/57 97 02/19/18 08:09 02/19/18 08:09 02/19/18 08:09 02/19/18 08:09 02/19/18 08:09 General appearance: Present: no acute distress, well-nourished - EENT Eyes: Present: PERRL ENT: hearing intact, clear oral mucosa - Neck Neck: Present: supple, normal ROM - Respiratory Respiratory effort: normal Respiratory: bilateral: CTA - Cardiovascular Heart Sounds: Present: S1 & S2. Absent: rub, click - Extremities Extremities: pulses symmetrical, No edema Peripheral Pulses: within normal limits - Abdominal General gastrointestinal: Present: soft, non-tender, non-distended, normal bowel sounds Male genitourinary: Present: normal - Integumentary Integumentary: Present: clear, warm, dry - Musculoskeletal Musculoskeletal: gait normal, strength equal bilaterally - Psychiatric Psychiatric: appropriate mood/affect, intact judgment & insight - Neurologic Neurologic: CNII-XII intact, moves all extremities Plan Activity: no restrictions Diet: low fat, low salt Follow up with: FRANKO QUESADA MD [Primary Care Provider] - 3-5 Days LAURA KEMP MD [Staff Physician] - 7 Days
--- NOTE | 2018-02-19 16:05 | Gastroenterology Progress Note ---
Assessment and Plan - Patient Problems (1) Obstructive jaundice Current Visit: Yes Status: Acute Plan to address problem: - DDx includes mass lesion (pancreatic CA but also lymphoma or neuroendocrine tumor), sarcoid/amyloid, etc, autoimmune pancreatitis, and focal pancreatic phlegmon from prior EtOH abuse/pancreatitis. - Clinically the patient is stable, with slightly improved labs. - No fevers to suggest infectious phlegmon, so no need for antibiotics. - At the present time the best single test would be an endoscopic ultrasound with fine needle biopsy to r/o autoimmune versus malignant pancreatic lesion. - Will arrange an EUS [facility] [place] [facility] within the next week to further evaluate. Subjective Date of service: 02/19/18 Principal diagnosis: Obstructive Jaundice Interval history: The patient is in no distress. He is eating without pain and has no fevers or chills. He denies any chest pain, or abdominal pain. Objective - Constitutional Vitals: Temp Pulse Resp BP Pulse Ox 98.2 F 50 L 20 94/57 97 02/19/18 08:09 02/19/18 08:09 02/19/18 08:09 02/19/18 08:09 02/19/18 08:09 General appearance: no acute distress - EENT Eyes: scleral icterus - Respiratory Respiratory effort: normal Respiratory: bilateral: CTA - Cardiovascular Rhythm: regular Heart Sounds: Present: S1 & S2 - Gastrointestinal General gastrointestinal: Present: soft, non-tender, non-distended - Labs CBC & Chem 7: 02/18/18 05:29 02/18/18 05:29
[2018-02-19 16:50] VITALS: BP 120/77
[2018-02-19] MEDS ORDERED: AMARYL PO SCH (18:00)
[2018-02-21 20:02] LABS: ANA Screen, IFA Negative (Negative)
== END 2018-02-19 18:49 | disposition home or self-care (01) | DRG 374 ==
LOC: ED 11:08 → 3A 18:16
PROVIDERS: ADMIT Internal Medicine; ATTEND Internal Medicine
DX: D49.0 Neoplasm of unspecified behavior of digestive system (principal); K83.1 Obstruction of bile duct; C22.0 Liver cell carcinoma; G40.909 Epilepsy, unspecified, not intractable, without status epilepticus; K86.9 Disease of pancreas, unspecified
CPT/HCPCS: 36415; 74177; 74183; 80053; 80074; 81001; 82106; 82378; 83520; 83690; 85025; 85610; 85730; 86038; 86235; 86301; A9577; Q9967